=== PATIENT | male | born 1960 ===

== ENCOUNTER 2019-05-18 01:17 | Emergency (ER) | payer MEDICARE, MEDICAID ==
[~2019-05-18] VITALS: Ht 172.7 cm; Wt 60.0 kg
[2019-05-18] MEDS ORDERED: amiodarone/D5 360MG/200ML BAG 200 ML IV SCH (01:36)
[2019-05-18 02:44] VITALS: BP 61/28
[2019-05-18 02:44] LABS: MEAN CORPUSCULAR HEMOGLOBIN 26.7 PG (27.0-31.0)
[2019-05-18 02:45] LABS: MEAN CORPUSCULAR HGB CONC 30.8 g/dL (33.0-36.5); MEAN CORPUSCULAR VOLUME 86.6 FL (78-98); PLATELET COUNT 135 X10'3 (140-440); WHITE BLOOD COUNT 6.9 X10'3 (4.5-11.0)
[2019-05-18 02:50] LABS: PARTIAL THROMBOPLASTIN TIME 54 SECONDS (22-32)
[2019-05-18 02:52] LABS: ALANINE AMINOTRANSFERASE 27 U/L (12-78); ALBUMIN 1.4 G/DL (3.4-5.0); ALBUMIN/GLOBULIN RATIO 0.6 (1.1-1.5); ALKALINE PHOSPHATASE 157 IU/L (46-116); ANION GAP 6 (8-16); ASPARTATE AMINO TRANSFERASE 50 U/L (10-37); BILIRUBIN,TOTAL 0.5 MG/DL (0.1-1.0); BLOOD UREA NITROGEN 45 MG/DL (7-18); BUN/CREATININE RATIO 17.9 (5.4-32.0); CHLORIDE 114 MMOL/L (99-107); CREATININE 2.52 MG/DL (0.60-1.10); GLUCOSE 135 MG/DL (70-104); POTASSIUM 5.4 MMOL/L (3.5-5.1); SODIUM 152 MMOL/L (135-145); TOTAL CARBON DIOXIDE 31.8 MMOL/L (24-32); TOTAL PROTEIN 3.8 G/DL (6.4-8.2); eGFR 27 ML/MIN
[2019-05-18 02:56] LABS: CALCIUM 14.1 MG/DL (8.5-10.1)
[2019-05-18] MEDS ORDERED: atropine 0.1mg/ml 10ml syringe ONE (03:00)
[2019-05-18] MEDS ORDERED: etomidate 2mg/ml inj. ONE (03:00)
[2019-05-18] MEDS ORDERED: calcium chloride 100 MG/1 ML inj IV ONE (03:00)
--- NOTE | 2019-05-18 03:15 | NUR ---
PATIENT PERSONAL AFFECTS:AL TOLEDO, CELL PHONE AND INSULATOR TESTER, GLUCOMETER X 2 SENT WITH PATIENT TO [facility]
--- NOTE | 2019-05-18 03:20 | NUR ---
CONTACTED [facility] [employer] PATHOLOGIST [facility]S OFFICE. IRENA MOROCHO RELEASED PATIENT
--- NOTE | 2019-05-18 03:25 | NUR ---
NOTIFIED BRENNA. [employer], NOT CANDIDATE FOR ORGAN DONATION
--- NOTE | 2019-05-18 03:27 | NUR ---
SPOKE TO , DAVID - SHE DOESN'T HAVE A MORTUARY PREFERENCE. I ADVISED HER WE WOULD CONTACT SOMEONE FOR HER AND HAVE THEM GIVE HER A CALL. SHE ALSO ASKED ABOUT PTS PERSONAL BELONGINGS. I ADVISED HER THAT ANYTHING THAT CAME WITH HIM WOULD BE SENT TO THE MORTUARY. I CALLED [employer] FOR HER AND ASKED THAT THEY PUT HIS BELONGINGS TOGETHER FOR HER TO BAROMETERS CALIBRATOR. I SPOKE WITH HIPOLITO AT [facility] AND ASKED THAT THEY CONTACT HER IN THE MORNING WITH INSTRUCTIONS ON HOW TO BAROMETERS CALIBRATOR HIS STUFF.
[2019-05-18 03:28] LABS: NUCLEATED RED BLOOD CELLS 1 /100WBC (0-0); TOTAL CELLS COUNTED 100
[2019-05-18 03:29] LABS: ANISOCYTOSIS 2+; HYPOCHROMASIA 1+; PLATELET ESTIMATE DECREASED
--- NOTE | 2019-05-18 04:20 | NUR ---
CONTACT INFO: "DAVID" [phone]
[2019-05-18] MEDS ORDERED: DOBUTamine/D5W 500mg/250ml premix IV ONE (05:00)
[2019-05-18] MEDS ORDERED: rocuronium bromide 100mg/10ml (10mg/ml) injection IV ONE (15:00)
== END 2019-05-18 06:57 | disposition expired ==
LOC: ER 01:17
DX: I46.9 Cardiac arrest, cause unspecified (principal); I50.9 Heart failure, unspecified; I11.0 Hypertensive heart disease with heart failure; J44.9 Chronic obstructive pulmonary disease, unspecified; E11.9 Type 2 diabetes mellitus without complications; Z98.890 Other specified postprocedural states; Z88.0 Allergy status to penicillin; Z88.2 Allergy status to sulfonamides; Z88.5 Allergy status to narcotic agent; Z88.8 Allergy status to other drugs, medicaments and biological substances
CPT/HCPCS: 31500; 36415; 71045; 80053; 85025; 85610; 85730; 86885; 86900; 86901; 86920; 87070; 92950; 93005; 94002; 99285; P9016; 87077; 87186; J0461; J1250